=== PATIENT | female | born 1960 | race Caucasian/White ===

== ENCOUNTER 2016-11-12 04:44 | Emergency (ER) | payer MEDICARE, OTHER ==
[~2016-11-12 04:44] MED LIST: ASPIRIN PO; ASPIRIN81 M2 PO; BACTRIM DS TABL1 TA1 PO; BACTRIM DS TABL1 TA2 PO; BAYER CHEWABLE81 MG PO; BENADRYL25 MG PO; CIPRO PO; CLARITIN10 M3 PO; CLARITIN5 MG; CONTOUR TEST STRIPS; ECOTRIN325 MG PO; FAMOTIDINE PO; FIBER; FLAGYL PO; FLEXERIL10 M1 PO; FLEXERIL10 MG PO; FLOMAX0.4 M1 DOB; GLUCOTROL XL PO; HUMALOG100 U/M1 SUBQ; HYDROCODON-ACE1 EAC5 PO; HYDROCORTISONE30 G2 EXT; LANTUS100 U/ML SQ; LANTUS100 U/ML SUBQ; LEVAQUIN PO; LEVOXYL PO; LIPITOR PO; LISINOPRIL PO; LOMOTIL TABLET1 TAB PO; LORATADINE PO; LORTAB 10/500 T1 TAB PO; LYRICA PO; LYRICA100 MG PO; MACROBID100 MG; METFORMIN PO; MIRALAX255 GM PO; NAPROSYN500 MG PO; NORVASC PO; NOVOLOG100 U/M1; NOVOLOG100 U/M3; OMEPRAZOLE40 M1 PO; PREDNISONE; PRILOSEC PO; PROAIR HFA8.5 GM INH; PYRIDIUM100 MG PO; SENNA PO; SERTRALINE HCL50 M1 PO; SKELAXIN PO; STOOL SOFTENERS; SYNTHROID PO; SYNTHROID0.15 MG DOB; SYNTHROID0.15 MG PO; VOLTAREN75 MG PO; ZITHROMAX
[2016-11-12 05:00] LABS: CALCIUM SERUM 9.6 mg/dL (8.4-10.2); CREATININE SERUM 1.2 mg/dL (0.6-1.4); GLOM FILT RATE Estimated 50.5 mL/min (>60); POTASSIUM 3.4 mmol/L (3.5-5.1)
== END 2016-11-12 06:09 | disposition home or self-care (01) ==
LOC: SED 04:44
PROVIDERS: Emergency Medicine
DX: E11.9 Type 2 diabetes mellitus without complications (principal); F17.200 Nicotine dependence, unspecified, uncomplicated; Z79.899 Other long term (current) drug therapy; Z79.4 Long term (current) use of insulin
CPT/HCPCS: 36415; 80048; 82947; 96374; 96375; 99284; J0696; J2405

== ENCOUNTER → 2016-12-17 | Outpatient (CLI) | payer MEDICARE, OTHER ==
[~2016-12-17] MED LIST changes: +FLOMAX0.4 M1; +LISINOPRIL2.5 MG; +NOVOLOG100 UNIT/1; +ZANTAC150 M1
--- NOTE | ~2016-12-17 | US78 ---
[facility] A Service of [facility] & [facility] RADIOLOGY TEXT RESULTS PATIENT: ADOLFO RDZ LOCATION: CNIV : 60 UNIT #: [id number] AGE: [address]: Gaby Gayle MD SEX: F ORDER DR: [id number] [facility] [address] [place], [place] [address] [id number] O MR#: [id number] #: [id number] NAME: ADOLFO RDZ : 1960 SEX: F STUDY DATE/TIME: 12/17/2016 8:59 UNIT: CNIV ROOM: STUDY DESCRIPTION: US Kidney Duplex Complete Attending Physician: Gaby Gayle M.D. Referring Physician: Gaby Gayle M.D. Ordering Physician: Gaby Gayle M.D. Primary Care Physician: Mayela Nguyen M.D. MEDICAL IMAGING REPORT This report is preliminary unless electronic signature is present EXAM Complete duplex Doppler renal ultrasound COMPARISON CT abdomen and pelvis dated 10/06/2015 and renal ultrasound dated 12/17/[address] abdomen and pelvis dated 06/09/2016. INDICATION 56-year-old female with stage 3 chronic kidney disease. History of hypertension and diabetes mellitus. FINDINGS There is asymmetric atrophy of the right kidney which demonstrates cortical thinning. The left kidney demonstrates normal cortical thickness. There is no hydronephrosis. For detailed evaluation of the kidneys, please see separate renal ultrasound exam performed on the same date. Peak systolic velocity in the mid abdominal aorta is 84 cm/sec. Normal resistive indices in the arcuate arteries of both kidneys. Peak systolic velocities in the proximal, mid, and distal right renal arteries are 147 cm/sec, 134 cm/sec, and 103 cm/sec. Peak systolic velocities in the left proximal, mid and distal renal arteries are 112 cm/sec, 118 cm/sec, and 129 cm/sec. Renal artery to aortic peak systolic velocity ratios are within normal limits at approximately 2 on the right and 1.5 on the left. IMPRESSION 1. No evidence of renal artery stenosis. 2. Atrophy of the right kidney. Please see separate renal ultrasound exam on the same date for a full description of renal STS. [facility] A Service of [facility] & [facility] RADIOLOGY TEXT RESULTS PATIENT: ADOLFO RDZ LOCATION: CNIV : 60 UNIT #: [id number] AGE: [address]: Gaby Gayle MD SEX: F ORDER DR: findings as this exam was performed to evaluate the arteries. Dictated by... Kirk Galloway M.D. THIS IS AN ELECTRONICALLY VERIFIED REPORT Kirk Galloway M.D. at 12/20/2016 3:45 PM ERIC/asif TD: 12/20/2016 15:14 JOB #: [id number] MEDICAL IMAGING REPORT Page 1 of 1 COPY
--- NOTE | ~2016-12-17 | US77 ---
[facility] A Service of [facility] & [facility] RADIOLOGY TEXT RESULTS PATIENT: ADOLFO RDZ LOCATION: CNIV : 60 UNIT #: [id number] AGE: [address]: Gaby Gayle MD SEX: F ORDER DR: [id number] [facility] [address] [place], [place] [address] [id number] O MR#: [id number] Acc #: [id number] NAME: ADOLFO RDZ : 1960 SEX: F STUDY DATE/TIME: 12/17/2016 8:53 UNIT: CNIV ROOM: STUDY DESCRIPTION: US Kidney Bilateral Complete Attending Physician: Gaby Gayle M.D. Referring Physician: Gaby Gayle M.D. Ordering Physician: Gaby Gayle M.D. Primary Care Physician: Mayela Nguyen M.D. MEDICAL IMAGING REPORT This report is preliminary unless electronic signature is present EXAM Renal ultrasound INDICATION Stage 3 chronic kidney disease. PROCEDURE Rodriguez-scale and Doppler imaging kidneys and bladder. COMPARISON 08/02/2016 FINDINGS Right kidney measures 7.6 cm in length. Cortical thickness is 6.0 mm. Unremarkable bladder. Left kidney measures 11.3 cm in length. Cortical thickness within normal limits. IMPRESSION Asymmetric cortical thinning of the right kidney may reflect changes of chronic renal disease. No hydronephrosis or focal renal lesion. Dictated by... David Sanchez M.D. THIS IS AN ELECTRONICALLY VERIFIED REPORT David Sanchez M.D. at 12/20/2016 8:22 AM BONNY/crescencio TD: 12/17/2016 12:10 JOB #: [id number] MEDICAL IMAGING REPORT Page 1 of 1 COPY
== END | disposition home or self-care (01) ==
LOC: CNIV 08:11
DX: N18.3 Chronic kidney disease, stage 3 (moderate) (principal); R93.49 Abnormal radiologic findings on diagnostic imaging of other urinary organs
CPT/HCPCS: 76770; 93975

== ENCOUNTER 2017-04-23 14:37 | Emergency (ER) | payer MEDICARE, OTHER ==
[~2017-04-23] VITALS: Ht 157.5 cm; Wt 74.8 kg
--- NOTE | ~2017-04-23 | CT57 ---
[facility]. [facility] A Service of [facility] RADIOLOGY TEXT RESULTS PATIENT: ADOLFO RDZ LOCATION: SED : 60 UNIT #: [id number] AGE: [address]: Funmi Martinez MD SEX: F ORDER DR: [id number] [address] [address] [id number] E MR#: [id number] Acc #: [id number] NAME: ADOLFO RDZ : 1960 SEX: F STUDY DATE/TIME: 04/23/2017 17:40 UNIT: SED ROOM: STUDY DESCRIPTION: CT Chest Wo Cont Attending Physician: Funmi Martinez M.D. Ordering Physician: Funmi Martinez M.D. Primary Care Physician: Mayela Nguyen M.D. MEDICAL IMAGING REPORT This report is preliminary unless electronic signature is present. EXAM Chest CT no contrast 04/23/2017 INDICATION Chest pain, cough, fever, losing balance for 3 days. History of rectal cancer. TECHNIQUE Noncontrast CT of the chest was performed. Comparison 01/20/2015. This CT examination was performed with one or more of the following radiation dose reduction techniques: automatic exposure control, adjustment of mA and/or kV according to patient size, and iterative reconstruction. FINDINGS There is no evidence of pneumonia or pleural effusion. There is old healed granulomatous disease. There is mild emphysematous change of both lungs and suggestion of mild chronic interstitial change. Previously documented noncalcified nodule in the upper lobe on the right posteriorly measures 3-4 mm. Stability dating back to 2013 is most characteristic of a benign etiology. No new suspicious pulmonary nodule identified. Reactive-appearing mediastinal nodes. No pericardial effusion. No axillary adenopathy. Calcified hilar nodes on the left. Upper abdomen demonstrates postop changes of cholecystectomy. The pancreas is atrophic. Stable retrocrural lymph nodes. No suspicious bone lesion. IMPRESSION 1. There is old healed granulomatous disease. No evidence of pneumonia or pleural effusion. 2. Benign noncalcified nodule in the upper lobe on the right, [facility] A Service of [facility] RADIOLOGY TEXT RESULTS PATIENT: ADOLFO RDZ LOCATION: [facility] : [birth year] UNIT #: [id number] AGE: [address]: Funmi Martinez MD SEX: F ORDER DR: letty dating back to 2013. 3. Upper abdomen demonstrates no acute finding. Dictated by... Jorden Sims M.D. THIS IS AN ELECTRONICALLY VERIFIED REPORT Jorden Sims M.D. at 04/24/2017 11:30 PM Pancho TD: 04/24/2017 09:31 JOB #: [id number] MEDICAL IMAGING REPORT Page 1 of 1
--- NOTE | ~2017-04-23 | CR63 ---
[facility]. [facility] A Service of [facility] RADIOLOGY TEXT RESULTS PATIENT: ADOLFO RDZ LOCATION: SED : [birth year] UNIT #: [id number] AGE: [address]: Funmi Martinez MD SEX: F ORDER DR: [id number] [address] [address] [id number] E MR#: [id number] Acc #: [id number] NAME: ADOLFO RDZ : 1960 SEX: F STUDY DATE/TIME: 04/23/2017 15:07 UNIT: SED ROOM: STUDY DESCRIPTION: CR Chest 2 View Attending Physician: Funmi Martinez M.D. Ordering Physician: Funmi Martinez M.D. Primary Care Physician: Mayela Nguyen M.D. MEDICAL IMAGING REPORT This report is preliminary unless electronic signature is present. EXAM 2-view chest 04/23/2017 INDICATIONS 56-year-old female with cough and fever. Losing balance symptoms 3 days. Cervical and rectal malignancy. TECHNIQUE Two view chest compared with 11/18/2013. FINDINGS Cardiac silhouette is within normal limits. There is old healed granulomatous disease. The vascularity is normal. Mild coarsening of the interstitial markings suggest mild chronic interstitial lung disease. No pneumothorax or effusion. IMPRESSION 1. Chronic interstitial changes and old healed granulomatous disease. No definite superimposed active disease. Dictated by... Jorden Sims M.D. THIS IS AN ELECTRONICALLY VERIFIED REPORT Jorden Sims M.D. at 04/24/2017 11:21 PM CHRISTEL/kristina TD: 04/24/2017 03:38 JOB #: [id number] MEDICAL IMAGING REPORT Page 1 of 1
[~2017-04-23 14:37] MED LIST changes: -FLOMAX0.4 M1; -LISINOPRIL2.5 MG; -NOVOLOG100 UNIT/1; -ZANTAC150 M1
[2017-04-23] MEDS ORDERED: NOVOLOG100 UNIT/1 (14:49)
[2017-04-23] MEDS ORDERED: ZANTAC150 M1 (14:50)
[2017-04-23] MEDS ORDERED: LISINOPRIL2.5 MG (14:50)
[2017-04-23] MEDS ORDERED: FLOMAX0.4 M1 (14:50)
[2017-04-23 16:04] LABS: BASOPHIL# 0.1 X10e3 (0-0.3); BASOPHIL% 0.5 % (0-2.5); EOSINOPHIL% 0.2 % (0.0-7.0); HEMATOCRIT 31.9 % (35.0-45.0); HEMOGLOBIN 10.6 gm/dL (12.0-16.0); LYMPHOCYTE# 0.9 X10e3 (1.0-3.5); LYMPHOCYTE% 7.1 % (17.0-45.0); MEAN CORPUSCULAR HEMOGLOBIN 28.7 PG (28-34); MEAN CORPUSCULAR HGB CONC 33.4 g/dL (30-36); MEAN PLATELET VOLUME 9.5 FL (6.5-11.5); MONOCYTE# 0.7 X10e3 (0-1.0); MONOCYTE% 5.4 % (3.0-12.0); NEUTROPHIL# 11.2 X10e3 (1.5-7.1); NEUTROPHIL% 86.8 % (40-75); PLATELET COUNT 159 X10e3 (140-420); RED BLOOD COUNT 3.71 X10e (3.90-5.30); RED CELL DISTRIBUTION WIDTH 15.2 % (11.0-15.5); WHITE BLOOD COUNT 12.9 X10e3 (4.0-10.5)
[2017-04-23 16:05] LABS: DIFF IND NO
[2017-04-23 16:19] LABS: CALCIUM SERUM 8.4 mg/dL (8.4-10.2); CREATININE SERUM 2.2 mg/dL (0.6-1.4); GLOM FILT RATE Estimated 24.3 mL/min (>60); POTASSIUM 4.1 mmol/L (3.5-5.1)
[2017-04-23 18:28] LABS: URINE SOURCE CATH
[2017-04-23 18:34] LABS: URINE APPEARANCE TURBID; URINE BILIRUBIN NEG (NEG); URINE BLOOD 1+ (NEG); URINE COLOR YELLOW; URINE GLUCOSE NEG (NORM); URINE KETONE NEG (NEG); URINE LEUKOCYTE ESTERASE 3+ (NEG); URINE NITRATE NEG (NEG); URINE PH 5.5 (5-8); URINE PROTEIN 2+ (NEG); URINE SPECIFIC GRAVITY 1.015 (1.003-1.035); URINE UROBILINOGEN 0.2 MG/DL (NORM)
[2017-04-23 18:36] LABS: MICRO INDICATED? YES
[2017-04-23 18:37] LABS: CULTURE INDICATED? YES; URINE BACTERIA 2+ (NEG); URINE SQUAMOUS EPITHELIAL CELL FEW /[HPF]; URINE TRANSITIONAL EPI CELLS FEW /[HPF]; URINE WBC 100-200 /[HPF] (0-5)
== END 2017-04-23 22:32 ==
LOC: SED 14:37
PROVIDERS: Student in an Organized Health Care Education/Training Program
DX: A41.9 Sepsis, unspecified organism (principal); R65.20 Severe sepsis without septic shock; N17.9 Acute kidney failure, unspecified; N18.9 Chronic kidney disease, unspecified; J18.9 Pneumonia, unspecified organism; N39.0 Urinary tract infection, site not specified; E11.9 Type 2 diabetes mellitus without complications; F17.200 Nicotine dependence, unspecified, uncomplicated; Z79.899 Other long term (current) drug therapy
CPT/HCPCS: 36415; 71020; 71250; 80048; 81003; 83605; 85025; 87040; 87086; 87088; 87186; 94640; 96365; 96367; 96375; 99285; J0456; J0696; J1885